=== PATIENT | female | born 1985 | race American Indian/Alaskan Native ===

== ENCOUNTER 2017-08-13 06:32 | Day surgery (SDC) | payer MEDICAID ==
[2017-08-13] MEDS ORDERED: WATER FOR IRRIG STERILE IR ONE (07:35)
[2017-08-13] MEDS ORDERED: DIPRIVAN 10 MG/ML IV ONE (07:57)
[2017-08-13] MEDS ORDERED: NACL 0.9% 1000 ML 1,000 ML IV SCH (08:00)
--- NOTE | 2017-08-13 08:30 | Anesthesia Consultation ---
Anesthesia Consult and Med Hx Date of service: 08/13/17 - Airway Anesthetic Teeth Evaluation: Good ROM Head & Neck: Adequate Mental/Hyoid Distance: Adequate Mallampati Class: Class III Intubation Access Assessment: Possibly Difficult - Pulmonary Exam CTA: Yes - Cardiac Exam Cardiac Exam: RRR - Pre-Operative Health Status ASA Pre-Surgery Classification: ASA3 Proposed Anesthetic Plan: MAC - Pulmonary Hx Smoking: No Hx Asthma: Yes (inhaler used 1 yr ago) - Endocrine Hx Non-Insulin Dependent Diabetes: Yes - Other Systems Hx Obesity: Yes - Additional Comments Anesthesia Medical History Comments: NAC
--- NOTE | 2017-08-13 08:30 | Anesthesia Day of Surgery ---
Anesthesia Day of Surgery - Day of Surgery Patient Examined: Yes Patient H&P Reviewed: Yes Patient is NPO: Yes
[2017-08-13] MEDS ORDERED: PEPCID IV ONE (08:42)
[2017-08-13] MEDS ORDERED: XYLOCAINE MPF 2% ONE (09:00)
--- NOTE | 2017-08-13 10:03 | Operative Report ---
Operative Report Operative Report: OPERATIVE REPORT - EGD DATE 08/13/17 SURGERY: Upper endoscopy. SURGEON: Dalton Nolen M.D. ELECTROLOGIST: Marcia Cueto MD PRE OP DX: dyspepsia POST OP DX: hiatal hernia TYPE OF ANESTHESIA: MAC. ESTIMATED BLOOD LOSS: None. COMPLICATIONS: None. SPECIMENS REMOVED: None. FINDINGS: 1. Small hiatal hernia. 2. Otherwise, normal esophagus, stomach and first portion of duodenum. INDICATIONS:INDICATION FOR PROCEDURE: Patient is a 32-year-old female with a long history of morbid obesity. She is planned to have a weight loss procedure and is here for preoperative planning EGD. PROCEDURE DETAILS: After consent was reviewed, patient was taken back to the operating room where patient was placed in the left lateral decubitus position and a bite block was placed in the mouth. After a time-out was called, MAC anesthesia was initiated. I then passed the endoscope into her oropharynx, into her esophagus, visualized the entire esophagus, which was all within normal limits. I then visualized the stomach and the first portion of the duodenum and there were no abnormalities I could clearly visualize. I then retroflexed the scope in the stomach and visualized the hiatus and I could see a small hiatal hernia. I then desufflated the stomach and removed the endoscope. Patient tolerated procedure well and was transferred to recovery room in good and stable condition.
--- NOTE | 2017-08-13 10:04 | Discharge Summary ---
Providers - Providers Attending physician: DILCIA DEL ANGEL Primary care physician: ABIMAEL PRESLEY Hospitalization Procedures: egd Hospital course: 32 y.o. F presented to Endoscopy for evaluation for her upcoming bariatric surgery and hx of dyspepsia. The pt tolerated the procedure well. Disposition: - TO HOME OR SELFCARE Core Measure Documentation - Palliative Care Palliative Care/ Comfort Measures: Not Applicable - Core Measures Any of the following diagnoses?: none Exam - Physical Exam Narrative exam: no change from prior - Constitutional Vitals: Temp Pulse Resp BP Pulse Ox 97.8 F 73 17 150/93 98 08/13/17 08:14 08/13/17 08:14 08/13/17 08:14 08/13/17 08:14 08/13/17 08:14 Plan Activity: no restrictions Additional Instructions: Follow up for Surgery Follow up with: ABIMAEL PRESLEY MD [Primary Care Provider] - 7 Days
--- NOTE | 2017-08-13 10:18 | Post Anesthesia Evaluation ---
- Post Anesthesia Evaluation Patient Participated: Yes Airway Patent: Yes Stable Respiratory Function: Yes Nausea/Vomiting: No Temp > 96.8F: Yes Pain Manageable: Yes Adequeate Hydration: Yes Anesthesia Complications: No Block Receding Appropriately: Not Applicable Patient on Ventilator: No
[2017-08-13 11:01] VITALS: BP 128/77
[2017-08-13] MEDS ORDERED: NACL 0.9% 1000 ML 1,000 ML ONE (11:09)
== END 2017-08-13 10:31 | disposition home or self-care (01) ==
LOC: GIO 06:32
PROVIDERS: ATTEND Surgery
DX: K30 Functional dyspepsia (principal); K44.9 Diaphragmatic hernia without obstruction or gangrene; E11.9 Type 2 diabetes mellitus without complications; F41.9 Anxiety disorder, unspecified; J45.909 Unspecified asthma, uncomplicated; K21.9 Gastro-esophageal reflux disease without esophagitis; E66.01 Morbid (severe) obesity due to excess calories; Z68.43 Body mass index [BMI] 50.0-59.9, adult; Z98.84 Bariatric surgery status; Z98.890 Other specified postprocedural states; Z83.3 Family history of diabetes mellitus; Z82.49 Family history of ischemic heart disease and other diseases of the circulatory system; Z79.899 Other long term (current) drug therapy; Z79.84 Long term (current) use of oral hypoglycemic drugs
CPT/HCPCS: 43235; 82962; J2704; J7030